=== PATIENT | male | born 1960 | race African-American/Black ===

== ENCOUNTER 2018-06-08 11:08 | Emergency (ER) | payer BC ==
[~2018-06-08] VITALS: Ht 188 cm; Wt 105.0 kg
[~2018-06-08 11:08] MED LIST: ASPI-1158 PO; DILT120C51 PO
[2018-06-08] MEDS ORDERED: KETOROLAC 30MG/ML VIAL IV STA (21:10)
[2018-06-08] MEDS ORDERED: SODIUM CHLORIDE 0.9% 1,000 ML IV ONE (21:10)
[2018-06-08 21:43] LABS: BASOPHILS % 0.6 % (0.0-2.0); EOSINOPHILS % 1.7 % (0.0-5.0); HEMATOCRIT. 46.2 % (42.0-52.0); HEMOGLOBIN. 16.1 g/dL (14.0-18.0); LYMPHOCYTES % 15.8 % (20.0-50.0); MEAN CORPUSCULAR HEMOGLOBIN 31.3 pg (28.0-32.0); MEAN PLATELET VOLUME 9.8 fl (7.4-10.4); MONOCYTES % 7.2 % (2.0-8.0); NEUTROPHILS % 74.7 % (40.0-76.0); PLATELET 171 x1000/uL (130-400); RED BLOOD CELL COUNT 5.14 mill/uL (4.7-6.1)
[2018-06-08 21:56] LABS: CHLORIDE 100 mEq/L (98-107)
[2018-06-08 21:58] LABS: INR 1.1; PARTIAL THROMBOPLASTIN TIME 31.4 sec (23.4-31.0); PROTHROMBIN TIME 11.4 sec (9.1-11.1)
[2018-06-09] MEDS ORDERED: METRONIDAZOLE 500MG TABLET PO ONE (00:15)
[2018-06-09] MEDS ORDERED: LEVOFLOXACIN 500MG TABLET PO ONE (00:15)
[2018-06-09 00:18] LABS: CLARITY URINE CLEAR (CLEAR); COLOR URINE YELLOW (YELLOW); KETONES URINE NEGATIVE (NEGATIVE); LEUKOCYTE ESTERASE URINE NEGATIVE (NEGATIVE); NITRITE URINE NEGATIVE (NEGATIVE); OCCULT BLOOD URINE TRACE (NEGATIVE); PROTEIN URINE NEGATIVE (NEGATIVE); SPECIFIC GRAVITY URINE 1.018 (1.005-1.030); UROBILINOGEN URINE 0.2 E.U./dL (0.2-1.0)
[2018-06-09 02:25] VITALS: BP 142/73
== END 2018-06-09 02:26 | disposition home or self-care (01) ==
LOC: ER 13:25
DX: K57.32 Diverticulitis of large intestine without perforation or abscess without bleeding (principal); I10 Essential (primary) hypertension; I48.92 Unspecified atrial flutter; Z88.0 Allergy status to penicillin; Z79.899 Other long term (current) drug therapy
CPT/HCPCS: 36415; 71045; 74176; 80053; 81003; 83690; 84484; 85025; 85610; 85730; 93005; 99285; J7030; 96360; 96361; J1885